=== PATIENT | female | born 1975 | race Caucasian/White ===

== ENCOUNTER 2024-04-26 09:02 | Emergency (ER) | payer OTHER ==
[2024-04-26] MEDS ORDERED: Acetaminophen 500 MG TAB ONE (09:43)
[2024-04-26 10:20] LABS: #Basophils Less than 0.03 10x3/uL (0.0-0.2); %Basophils 0.3 % (0.0-1.0); %Eosinophils 0.8 % (0.0-10.0); %Lymphocytes 4.6 % (21.0-51.0); %Monocytes 9.3 % (0.0-10.0); %Neutrophils 84.4 % (42.0-75.0); Hematocrit 26.4 % (36.0-47.0); Hemoglobin 8.1 g/dL (12.0-16.0); Mean Corpuscular HGB CONC 30.7 g/dL (32.0-36.0); Mean Corpuscular Hemoglobin 23.3 pg (27.0-31.0); Mean Corpuscular Volume 75.9 fL (78.0-98.0); Mean Platelet Volume 9.2 fL (7.4-10.4); Platelet Count 416 10x3/uL (130-400); RBC Distribution Width 16.4 % (11.5-14.5); Red Blood Cell (RBC) Count 3.48 mill/uL (4.20-5.40)
[2024-04-26 10:37] LABS: ALT (SGPT) 8 U/L (8-55); AST (SGOT) 14 U/L (5-34); Albumin 2.9 g/dL (3.5-5.0); Alkaline Phosphatase 86 U/L (40-110); Anion Gap 12 mmol/L (10-20); BUN (Urea Nitrogen) 11 mg/dL (7.0-18.7); Bilirubin, Total 0.3 mg/dL (0.2-1.2); Calc. Creatinine Clearance 0 mL/min (70-130); Calcium 9.9 mg/dL (7.8-10.44); Carbon Dioxide 24 mmol/L (22-29); Chloride 99 mmol/L (98-107); Estimated GFR 47; Globulin 3.6 g/dL (2.4-3.5); Glucose 98 mg/dL (70-105); Lipase 10 U/L (8-78); Potassium 4.1 mmol/L (3.5-5.1); Protein, Total 6.5 g/dL (6.0-8.3); Sodium 131 mmol/L (136-145)
[2024-04-26 10:41] LABS: Influenza A by NAA Not Detected (NotDetected); Influenza B by NAA Not Detected (NotDetected); SARS-CoV-2 NAA Rapid Test DETECTED (NotDetected)
[2024-04-26 10:43] LABS: Troponin I Less than 0.010 ng/mL (< 0.028)
== END 2024-04-26 11:03 ==
LOC: ERS 09:02 → EEVIPCON 09:02 → ERS 11:03
DX: U07.1 COVID-19 (principal)
CPT/HCPCS: 71045; 80053; 83690; 84484; 85025; 93005; 96360

== ENCOUNTER 2024-06-20 11:41 | Inpatient (IN) | payer OTHER ==
[2024-06-20 12:37] LABS: #Basophils 0.07 10x3/uL (0.0-0.2); %Basophils 0.6 % (0.0-1.0); %Eosinophils 2.3 % (0.0-10.0); %Lymphocytes 15.8 % (21.0-51.0); %Monocytes 8.9 % (0.0-10.0); %Neutrophils 72.2 % (42.0-75.0); Hematocrit 26.5 % (36.0-47.0); Hemoglobin 8.1 g/dL (12.0-16.0); Mean Corpuscular HGB CONC 30.6 g/dL (32.0-36.0); Mean Corpuscular Volume 85.2 fL (78.0-98.0); Mean Platelet Volume 9.6 fL (7.4-10.4); Platelet Count 429 10x3/uL (130-400); RBC Distribution Width 17.7 % (11.5-14.5); Red Blood Cell (RBC) Count 3.11 mill/uL (4.20-5.40)
[2024-06-20 12:51] LABS: INR-International Normal Ratio 1.1; Prothrombin Time 13.9 sec (12.0-14.7)
[2024-06-20 13:03] LABS: ALT (SGPT) 9 U/L (8-55); AST (SGOT) 13 U/L (5-34); Albumin 2.4 g/dL (3.5-5.0); Alkaline Phosphatase 91 U/L (40-110); Anion Gap 11 mmol/L (10-20); BUN (Urea Nitrogen) 8 mg/dL (7.0-18.7); Bilirubin, Total 0.2 mg/dL (0.2-1.2); Calc. Creatinine Clearance 0 mL/min (70-130); Calcium 9.5 mg/dL (7.8-10.44); Carbon Dioxide 24 mmol/L (22-29); Chloride 108 mmol/L (98-107); Estimated GFR 92; Globulin 3.5 g/dL (2.4-3.5); Glucose 89 mg/dL (70-105); Potassium 3.4 mmol/L (3.5-5.1); Protein, Total 5.9 g/dL (6.0-8.3); Sodium 140 mmol/L (136-145); Troponin I Less than 0.010 ng/mL (< 0.028)
[2024-06-20] MEDS ORDERED: Calcium Carbonate 500 MG ChewTAB PO PRN (14:51)
[2024-06-20 17:06] VITALS: BMI 35.7
[2024-06-20] MEDS: Pantoprazole 40 MG VIAL IVP SCH ×2 (17:43→20:40)
[2024-06-20] MEDS: Acetaminophen 325 MG TAB PO PRN (17:43)
[2024-06-20] MEDS: Ondansetron PF 4 MG/2 ML Vial IVP PRN (17:49)
[2024-06-20] MEDS: Morphine 2 MG/ML VIAL SLOW IVP PRN (18:35)
[2024-06-20 18:42] LABS: Hematocrit 26.7 % (36.0-47.0); Hemoglobin 8.2 g/dL (12.0-16.0)
[2024-06-20] MEDS: Potassium Chloride 20 MEQ in Premix 1 BAG IVPB SCH (20:41)
[2024-06-20] MEDS: Sodium Ferric Gluconate 250 MG in Sodium Chloride 0.9% 250 ML 250 ML IVPB SCH (22:32)
[2024-06-21 06:19] LABS: #Basophils 0.05 10x3/uL (0.0-0.2); %Basophils 0.7 % (0.0-1.0); %Eosinophils 2.6 % (0.0-10.0); %Monocytes 9.8 % (0.0-10.0); %Neutrophils 70.3 % (42.0-75.0); Hemoglobin 7.3 g/dL (12.0-16.0); Mean Corpuscular HGB CONC 30.4 g/dL (32.0-36.0); Mean Corpuscular Hemoglobin 26.2 pg (27.0-31.0); Mean Platelet Volume 9.6 fL (7.4-10.4); Platelet Count 379 10x3/uL (130-400); RBC Distribution Width 17.8 % (11.5-14.5); Red Blood Cell (RBC) Count 2.79 mill/uL (4.20-5.40)
[2024-06-21 06:38] LABS: ALT (SGPT) 8 U/L (8-55); AST (SGOT) 11 U/L (5-34); Albumin 2.1 g/dL (3.5-5.0); Alkaline Phosphatase 81 U/L (40-110); Anion Gap 11 mmol/L (10-20); BUN (Urea Nitrogen) 9 mg/dL (7.0-18.7); Bilirubin, Total 0.2 mg/dL (0.2-1.2); Calc. Creatinine Clearance 123 mL/min (70-130); Calcium 9.4 mg/dL (7.8-10.44); Carbon Dioxide 25 mmol/L (22-29); Chloride 111 mmol/L (98-107); Estimated GFR 84; Globulin 3.2 g/dL (2.4-3.5); Glucose 87 mg/dL (70-105); Potassium 3.8 mmol/L (3.5-5.1); Protein, Total 5.3 g/dL (6.0-8.3); Sodium 143 mmol/L (136-145)
[2024-06-21] MEDS: Lisinopril 20 MG TAB PO SCH (08:53)
[2024-06-21] MEDS: DULoxetine 60 MG CAP PO SCH (08:53)
[2024-06-21] MEDS ORDERED: PROPOFOL 20 ML ONE (13:14)
[2024-06-21] MEDS ORDERED: Lidocaine 1% PF 5 ML VIAL ONE (13:14)
[2024-06-21] MEDS ORDERED: fentaNYL PF 100 MCG/2 ML SYRINGE ONE (14:45)
[2024-06-21] MEDS ORDERED: EPINEPHrine 1 MG/10 ML Abboject SYRINGE ONE (14:54)
[2024-06-21] MEDS ORDERED: PROPOFOL 200 MG/20 ML VIAL ONE (15:02)
[2024-06-21 15:22] VITALS: BMI 35.7
[2024-06-21] MEDS ORDERED: fentaNYL 50 mcg/mL 1 mL Vial ONE ×2 (15:29→15:44)
[2024-06-21] MEDS ORDERED: Meperidine HCl/PF 25 MG (1 mL) VIAL ONE (15:30)
[2024-06-21] MEDS: Morphine 2 MG/ML VIAL SLOW IVP PRN (21:12)
[2024-06-22 07:20] LABS: #Basophils 0.06 10x3/uL (0.0-0.2); %Basophils 0.8 % (0.0-1.0); %Eosinophils 4.1 % (0.0-10.0); %Lymphocytes 14.1 % (21.0-51.0); %Monocytes 9.7 % (0.0-10.0); %Neutrophils 70.6 % (42.0-75.0); Hematocrit 24.5 % (36.0-47.0); Hemoglobin 7.4 g/dL (12.0-16.0); Mean Corpuscular HGB CONC 30.2 g/dL (32.0-36.0); Mean Corpuscular Hemoglobin 26.4 pg (27.0-31.0); Mean Corpuscular Volume 87.5 fL (78.0-98.0); Mean Platelet Volume 9.5 fL (7.4-10.4); Platelet Count 417 10x3/uL (130-400); RBC Distribution Width 17.9 % (11.5-14.5)
[2024-06-22 08:10] LABS: Anion Gap 11 mmol/L (10-20); BUN (Urea Nitrogen) 6 mg/dL (7.0-18.7); Calc. Creatinine Clearance 118 mL/min (70-130); Calcium 9.8 mg/dL (7.8-10.44); Carbon Dioxide 27 mmol/L (22-29); Chloride 106 mmol/L (98-107); Estimated GFR 79; Glucose 82 mg/dL (70-105); Magnesium 1.8 mg/dL (1.6-2.6); Sodium 140 mmol/L (136-145)
[2024-06-22] MEDS: Senokot S 8.6-50 MG TAB PO PRN (09:43)
[2024-06-22] MEDS: Acetaminophen 500 MG TAB PO SCH (15:06)
[2024-06-22] MEDS: Lidocaine 2% Viscous Solution 10 ML, Aluminum & Magnesium Hydroxide 30 ML SSW SCH ×2 (15:32→20:43)
[2024-06-22] MEDS: Lidocaine 4% Patch TD SCH ×2 (22:58→23:20)
[2024-06-22] MEDS: Sucralfate 1 GM TAB PO SCH (22:58)
[2024-06-22] MEDS: traMADol HCl 50 MG TAB PO SCH (22:58)
[2024-06-22] MEDS: HYDROcodone/Acetaminophen 5/325 mg Tablet PO SCH (23:33)
[2024-06-23 05:27] LABS: #Basophils 0.05 10x3/uL (0.0-0.2); %Basophils 0.7 % (0.0-1.0); %Eosinophils 3.4 % (0.0-10.0); %Lymphocytes 20.6 % (21.0-51.0); %Monocytes 13.4 % (0.0-10.0); %Neutrophils 61.2 % (42.0-75.0); Hematocrit 24.6 % (36.0-47.0); Hemoglobin 7.6 g/dL (12.0-16.0); Mean Corpuscular HGB CONC 30.9 g/dL (32.0-36.0); Mean Corpuscular Hemoglobin 26.2 pg (27.0-31.0); Mean Corpuscular Volume 84.8 fL (78.0-98.0); Mean Platelet Volume 9.9 fL (7.4-10.4); Platelet Count 414 10x3/uL (130-400)
[2024-06-23] MEDS: Sucralfate 1 GM TAB PO SCH (09:14)
[2024-06-23] MEDS ORDERED: traMADol HCl 50 MG TAB PO PRN (11:18)
[2024-06-23] MEDS ORDERED: traMADol HCl 50 MG TAB PO SCH (11:30)
[2024-06-23] MEDS: Transdermal Patch Removal TOP SCH (11:58)
[2024-06-23] MEDS: HYDROcodone/Acetaminophen 5/325 mg Tablet PO PRN (15:44)
[2024-06-23] MEDS: Temazepam 15 MG CAP PO PRN (22:56)
[2024-06-24 06:24] LABS: #Basophils 0.05 10x3/uL (0.0-0.2); %Basophils 0.7 % (0.0-1.0); %Eosinophils 4.1 % (0.0-10.0); %Neutrophils 59.3 % (42.0-75.0); Hematocrit 25.8 % (36.0-47.0); Mean Corpuscular Volume 87.2 fL (78.0-98.0); Mean Platelet Volume 9.3 fL (7.4-10.4); Platelet Count 450 10x3/uL (130-400); RBC Distribution Width 18.2 % (11.5-14.5); Red Blood Cell (RBC) Count 2.96 mill/uL (4.20-5.40)
[2024-06-24 07:36] VITALS: TEMP 98.6
[2024-06-24 11:17] VITALS: BP 154/64
== END 2024-06-24 15:18 | DRG 378 ==
LOC: SUATTDRO 11:41 → ERS 11:41 → T4-A 16:33 → EEVIPCON 16:33 → OBSVTOIN 06-21 20:10
PROVIDERS: ADMIT Internal Medicine; ATTEND Family Medicine
PROC: 0W3P8ZZ Control Bleeding in Gastrointestinal Tract, Via Natural or Artificial Opening Endoscopic (ICD-10-PCS; principal; 2024-06-21)
DX: K28.4 Chronic or unspecified gastrojejunal ulcer with hemorrhage (principal); D62 Acute posthemorrhagic anemia; E87.6 Hypokalemia; I10 Essential (primary) hypertension; G89.4 Chronic pain syndrome; F41.9 Anxiety disorder, unspecified; F32.A Depression, unspecified; Z88.0 Allergy status to penicillin; Z98.84 Bariatric surgery status; Z90.49 Acquired absence of other specified parts of digestive tract; Z87.891 Personal history of nicotine dependence; Z90.710 Acquired absence of both cervix and uterus
CPT/HCPCS: 36415; 36416; 71045; 74176; 80048; 80053; 83735; 84484; 85025; 85610; 85730; 86850; 86900; 86901; 93005; 93010; J0171; J2175; J2272; J2405; J2470; J2704; J2916; J3010; J3480; J7050

== ENCOUNTER 2024-07-16 08:58 | Inpatient (IN) | payer OTHER, SELFPAY ==
[2024-07-16] MEDS ORDERED: Pantoprazole 40 MG VIAL ONE (09:27)
[2024-07-16 09:51] LABS: #Basophils 0.05 10x3/uL (0.0-0.2); %Basophils 0.5 % (0.0-1.0); %Eosinophils 0.3 % (0.0-10.0); %Lymphocytes 11.8 % (21.0-51.0); %Monocytes 5.4 % (0.0-10.0); %Neutrophils 81.8 % (42.0-75.0); Hematocrit 30.8 % (36.0-47.0); Hemoglobin 9.7 g/dL (12.0-16.0); Mean Corpuscular HGB CONC 31.5 g/dL (32.0-36.0); Mean Corpuscular Hemoglobin 26.5 pg (27.0-31.0); Mean Corpuscular Volume 84.2 fL (78.0-98.0); Mean Platelet Volume 10.1 fL (7.4-10.4); Platelet Count 308 10x3/uL (130-400); RBC Distribution Width 16.3 % (11.5-14.5); Red Blood Cell (RBC) Count 3.66 mill/uL (4.20-5.40)
[2024-07-16 10:09] LABS: BHCG - Serum Negative (NEGATIVE); Pregs Control Background? CLEAR/WHITE (CLR/WHITE); Pregs Control Bar Appear? YES (CONTROL BAR)
[2024-07-16 10:18] LABS: ALT (SGPT) 12 U/L (8-55); AST (SGOT) 18 U/L (5-34); Albumin 2.9 g/dL (3.5-5.0); Alkaline Phosphatase 74 U/L (40-110); Anion Gap 13 mmol/L (10-20); BUN (Urea Nitrogen) 21 mg/dL (7.0-18.7); Bilirubin, Total 0.4 mg/dL (0.2-1.2); Calc. Creatinine Clearance 0 mL/min (70-130); Calcium 9.5 mg/dL (7.8-10.44); Carbon Dioxide 25 mmol/L (22-29); Chloride 107 mmol/L (98-107); Estimated GFR 73; Globulin 3.1 g/dL (2.4-3.5); Glucose 103 mg/dL (70-105); Magnesium 1.7 mg/dL (1.6-2.6); Potassium 3.4 mmol/L (3.5-5.1); Sodium 142 mmol/L (136-145)
[2024-07-16] MEDS ORDERED: Morphine 4 MG/ML VIAL ONE (10:34)
[2024-07-16] MEDS ORDERED: Ondansetron PF 4 MG/2 ML Vial ONE (10:34)
[2024-07-16] MEDS ORDERED: methylPREDNISolone Sod Succ 40 MG VIAL ONE (11:18)
[2024-07-16] MEDS ORDERED: Famotidine/PF 20 mg/2ml Vial ONE (11:18)
[2024-07-16] MEDS ORDERED: diphenhydrAMINE 50 MG/ML VIAL ONE (11:18)
[2024-07-16 12:11] LABS: Bacteria/HPF 1+ HPF (None Seen); Bilirubin Negative (Negative); Blood, Urine Negative (Negative); CAUTI Indications for Culture Dysuria,urgency,freq; Clarity Clear (Clear); Glucose, Urine (Dipstick) Normal (Negative); Ketone, Urine 20 mg/dL (Negative); Leukocyte 500 Leu/uL (Negative); Nitrite Negative (Negative); Protein, Urine (Dipstick) 20 mg/dL (Neg-Trace); RBC/HPF 0-3 HPF (0-3); Specific Gravity, Urine 1.023 (1.002-1.036); Squamous Epithelial 0-3 HPF (0-3); Urobilinogen Normal mg/dL (Less than 2); WBC/HPF 21-50 HPF (0-3)
[2024-07-16 12:13] LABS: INR-International Normal Ratio 1.1; Prothrombin Time 13.8 sec (12.0-14.7)
[2024-07-16 12:13] LABS: Urine Culture Reflex Yes Yes
[2024-07-16] MEDS ORDERED: Iopamidol-370 76% 500 ML MDV (1 ML CHARGE) ONE (12:43)
[2024-07-16] MEDS ORDERED: cefTRIAXone (ROCEPHIN) 2 GM VIAL ONE (13:52)
[2024-07-16] MEDS ORDERED: Sodium Chloride 0.9% 100 ML ONE (13:52)
[2024-07-16] MEDS ORDERED: Guaifenesin DM 100-10/5 ML UDCUP PO PRN (13:58)
[2024-07-16] MEDS ORDERED: Calcium Carbonate 500 MG ChewTAB PO PRN (13:58)
[2024-07-16 15:01] LABS: Hemoglobin 8.6 g/dL (12.0-16.0)
[2024-07-16] MEDS: Pantoprazole 80 MG, Admixture Fee 1 EACH in Sodium Chloride 0.9% 100 ML IVPB SCH ×2 (15:58→22:10)
[2024-07-16] MEDS: Sodium Chloride 0.9% 1,000 ML IV SCH (16:03)
[2024-07-16] MEDS: Ondansetron PF 4 MG/2 ML Vial IVP PRN (16:06)
[2024-07-16] MEDS: Acetaminophen/Codeine 30-300mg Tablet PO PRN (16:07)
[2024-07-16] MEDS ORDERED: Promethazine HCl 25 MG in Sodium Chloride 0.9% 50 ML IVPB PRN (16:43)
[2024-07-16] MEDS ORDERED: hydrALAZINE 20 MG/ML VIAL SLOW IVP PRN (17:57)
[2024-07-16] MEDS: Morphine 2 MG/ML VIAL SLOW IVP SCH (20:05)
[2024-07-16 21:31] LABS: Hemoglobin 7.5 g/dL (12.0-16.0)
[2024-07-16] MEDS: HYDROcodone/Acetaminophen 10/325 mg Tablet PO SCH (22:09)
[2024-07-16] MEDS ORDERED: Lidocaine 4% Patch TD SCH (22:15)
[2024-07-16] MEDS: Lidocaine 4% Patch TD SCH (23:23)
[2024-07-17 05:03] LABS: #Basophils 0.04 10x3/uL (0.0-0.2); #Eosinophils Less than 0.03 10x3/uL (0.0-0.7); %Basophils 0.7 % (0.0-1.0); %Eosinophils 0.3 % (0.0-10.0); %Lymphocytes 34.7 % (21.0-51.0); %Monocytes 9.4 % (0.0-10.0); %Neutrophils 54.7 % (42.0-75.0); Hematocrit 23.5 % (36.0-47.0); Hemoglobin 6.9 g/dL (12.0-16.0); Mean Corpuscular HGB CONC 29.4 g/dL (32.0-36.0); Mean Corpuscular Hemoglobin 26.1 pg (27.0-31.0); Mean Platelet Volume 10.2 fL (7.4-10.4); Platelet Count 207 10x3/uL (130-400); RBC Distribution Width 16.4 % (11.5-14.5); Red Blood Cell (RBC) Count 2.64 mill/uL (4.20-5.40)
[2024-07-17 05:21] LABS: ALT (SGPT) 8 U/L (8-55); AST (SGOT) 11 U/L (5-34); Albumin 2.2 g/dL (3.5-5.0); Alkaline Phosphatase 52 U/L (40-110); Anion Gap 10 mmol/L (10-20); BUN (Urea Nitrogen) 16 mg/dL (7.0-18.7); Bilirubin, Total 0.2 mg/dL (0.2-1.2); Calc. Creatinine Clearance 107 mL/min (70-130); Calcium 8.8 mg/dL (7.8-10.44); Carbon Dioxide 21 mmol/L (22-29); Chloride 113 mmol/L (98-107); Estimated GFR 88; Globulin 2.2 g/dL (2.4-3.5); Glucose 82 mg/dL (70-105); Potassium 3.1 mmol/L (3.5-5.1); Protein, Total 4.4 g/dL (6.0-8.3); Sodium 141 mmol/L (136-145)
[2024-07-17] MEDS: Morphine 2 MG/ML VIAL SLOW IVP PRN ×2 (10:21→20:39)
[2024-07-17] MEDS: Lisinopril 20 MG TAB PO SCH (11:44)
[2024-07-17] MEDS: Transdermal Patch Removal TOP SCH (11:45)
[2024-07-17] MEDS: DULoxetine 60 MG CAP PO SCH (11:45)
[2024-07-17 14:46] LABS: Hemoglobin 8.8 g/dL (12.0-16.0)
[2024-07-17] MEDS: cefTRIAXone\\ROCEPHIN 1 GM in Sodium Chloride 0.9% 100 ML IVPB SCH (16:12)
[2024-07-17 18:29] LABS: Hematocrit 27.8 % (36.0-47.0); Hemoglobin 8.2 g/dL (12.0-16.0)
[2024-07-17 21:12] LABS: Hematocrit 24.9 % (36.0-47.0); Hemoglobin 7.6 g/dL (12.0-16.0)
[2024-07-17] MEDS: Cyclobenzaprine 10 MG TAB PO SCH (23:31)
[2024-07-18 04:54] LABS: #Basophils 0.04 10x3/uL (0.0-0.2); %Basophils 0.8 % (0.0-1.0); %Eosinophils 2.1 % (0.0-10.0); %Lymphocytes 41.3 % (21.0-51.0); %Monocytes 10.4 % (0.0-10.0); %Neutrophils 45.4 % (42.0-75.0); Hematocrit 24.3 % (36.0-47.0); Hemoglobin 7.5 g/dL (12.0-16.0); Mean Corpuscular HGB CONC 30.9 g/dL (32.0-36.0); Mean Corpuscular Hemoglobin 27.2 pg (27.0-31.0); Mean Platelet Volume 10.2 fL (7.4-10.4); Platelet Count 176 10x3/uL (130-400); RBC Distribution Width 16.4 % (11.5-14.5); Red Blood Cell (RBC) Count 2.76 mill/uL (4.20-5.40)
[2024-07-18 05:05] LABS: Anion Gap 9 mmol/L (10-20); BUN (Urea Nitrogen) 8 mg/dL (7.0-18.7); Calc. Creatinine Clearance 99 mL/min (70-130); Calcium 8.9 mg/dL (7.8-10.44); Carbon Dioxide 24 mmol/L (22-29); Chloride 109 mmol/L (98-107); Estimated GFR 79; Glucose 84 mg/dL (70-105); Potassium 3.5 mmol/L (3.5-5.1); Sodium 138 mmol/L (136-145)
[2024-07-18] MEDS ORDERED: PROPOFOL 0 ML ONE (10:45)
[2024-07-18] MEDS ORDERED: Midazolam HCl 2 mg/2 ml Vial ONE (10:45)
[2024-07-18] MEDS ORDERED: PROPOFOL 20 ML ONE (10:52)
[2024-07-18] MEDS ORDERED: Ketamine In 0.9 % NaCl 50 MG/5 ML SYRINGE ONE (10:58)
[2024-07-18] MEDS ORDERED: EPINEPHrine 1 MG/10 ML Abboject SYRINGE ONE (11:11)
[2024-07-18] MEDS ORDERED: PROPOFOL 40 ML ONE (11:26)
[2024-07-18] MEDS ORDERED: Ondansetron PF 4 MG/2 ML Vial ONE (11:41)
[2024-07-18] MEDS ORDERED: fentaNYL 50 mcg/mL 1 mL Vial ONE ×2 (11:44→12:05)
[2024-07-18] MEDS ORDERED: Rocuronium Bromide 10 MG/ML (10ML VIAL) ONE (11:49)
[2024-07-18] MEDS ORDERED: HYDROmorphone 0.5 MG/0.5 ML SYRINGE ONE (11:54)
[2024-07-18] MEDS: Sucralfate 1 GM/10 ML UDCUP PO SCH (14:08)
[2024-07-18] MEDS: Pantoprazole 40 MG VIAL IVP SCH (15:22)
[2024-07-18] MEDS: Morphine 2 MG/ML VIAL SLOW IVP PRN (20:59)
[2024-07-18] MEDS: HYDROcodone/Acetaminophen 5/325 mg Tablet PO PRN (22:56)
[2024-07-19 09:42] LABS: #Basophils 0.04 10x3/uL (0.0-0.2); %Eosinophils 3.1 % (0.0-10.0); %Lymphocytes 30.4 % (21.0-51.0); %Neutrophils 55.3 % (42.0-75.0); Hematocrit 26.4 % (36.0-47.0); Hemoglobin 7.8 g/dL (12.0-16.0); Mean Corpuscular HGB CONC 29.5 g/dL (32.0-36.0); Mean Corpuscular Hemoglobin 26.9 pg (27.0-31.0); Mean Platelet Volume 10.1 fL (7.4-10.4); Platelet Count 198 10x3/uL (130-400)
[2024-07-19 09:59] LABS: Anion Gap 9 mmol/L (10-20); BUN (Urea Nitrogen) 5 mg/dL (7.0-18.7); Calc. Creatinine Clearance 106 mL/min (70-130); Calcium 8.9 mg/dL (7.8-10.44); Carbon Dioxide 25 mmol/L (22-29); Chloride 110 mmol/L (98-107); Estimated GFR 86; Glucose 87 mg/dL (70-105); Sodium 140 mmol/L (136-145)
[2024-07-19] MEDS ORDERED: Morphine 2 MG/ML VIAL SLOW IVP PRN (12:57)
[2024-07-19 20:37] VITALS: BP 148/67; TEMP 98.7
== END 2024-07-19 21:07 | disposition home or self-care (01) | DRG 378 ==
LOC: EEVIPCON 08:58 → ERS 08:58 → 2NO 13:53
PROVIDERS: ADMIT Internal Medicine; ATTEND Internal Medicine
PROC: 30233N1 Transfusion of Nonautologous Red Blood Cells into Peripheral Vein, Percutaneous Approach (ICD-10-PCS; 2024-07-17)
PROC: 0W3P8ZZ Control Bleeding in Gastrointestinal Tract, Via Natural or Artificial Opening Endoscopic (ICD-10-PCS; principal; 2024-07-18)
DX: K28.4 Chronic or unspecified gastrojejunal ulcer with hemorrhage (principal); D62 Acute posthemorrhagic anemia; K76.0 Fatty (change of) liver, not elsewhere classified; F41.9 Anxiety disorder, unspecified; F32.A Depression, unspecified; Z90.49 Acquired absence of other specified parts of digestive tract; Z88.0 Allergy status to penicillin; Z90.710 Acquired absence of both cervix and uterus; Z98.890 Other specified postprocedural states; R00.0 Tachycardia, unspecified; Z91.041 Radiographic dye allergy status
CPT/HCPCS: 36415; 36430; 74177; 80048; 80053; 81001; 82607; 83735; 84425; 84703; 85025; 85610; 85730; 86850; 86900; 86901; 87077; 87086; 93005; 96374; 96375; 96376; J0171; J0696; J1170; J1200; J2250; J2272; J2405; J2470; J2704; J2919; J3010; J3490; J7030; P9016; Q9967

== ENCOUNTER 2024-08-01 16:00 | Inpatient (IN) | payer OTHER ==
[~2024-08-01 16:00] MED LIST: Iopamidol-370 76% 500 ML MDV (1 ML CHARGE) ONE
[2024-08-01 17:46] LABS: #Basophils 0.04 10x3/uL (0.0-0.2); %Basophils 0.4 % (0.0-1.0); %Eosinophils 0.5 % (0.0-10.0); %Lymphocytes 23.2 % (21.0-51.0); %Monocytes 7.8 % (0.0-10.0); %Neutrophils 67.9 % (42.0-75.0); Hematocrit 31.4 % (36.0-47.0); Hemoglobin 10.1 g/dL (12.0-16.0); Mean Corpuscular HGB CONC 32.2 g/dL (32.0-36.0); Mean Corpuscular Hemoglobin 26.8 pg (27.0-31.0); Mean Corpuscular Volume 83.3 fL (78.0-98.0); Mean Platelet Volume 9.3 fL (7.4-10.4); Platelet Count 392 10x3/uL (130-400); RBC Distribution Width 15.2 % (11.5-14.5); Red Blood Cell (RBC) Count 3.77 mill/uL (4.20-5.40)
[2024-08-01] MEDS ORDERED: Morphine 2 MG/ML VIAL ONE ×2 (17:56→19:55)
[2024-08-01] MEDS ORDERED: Pantoprazole 40 MG VIAL ONE (17:56)
[2024-08-01 18:01] LABS: INR-International Normal Ratio 1.1; Prothrombin Time 13.9 sec (12.0-14.7)
[2024-08-01 18:02] LABS: ALT (SGPT) 10 U/L (8-55); AST (SGOT) 16 U/L (5-34); Albumin 2.9 g/dL (3.5-5.0); Alkaline Phosphatase 68 U/L (40-110); Anion Gap 11 mmol/L (10-20); BUN (Urea Nitrogen) 17 mg/dL (7.0-18.7); Bilirubin, Total 0.4 mg/dL (0.2-1.2); Calc. Creatinine Clearance 0 mL/min (70-130); Calcium 9.9 mg/dL (7.8-10.44); Carbon Dioxide 27 mmol/L (22-29); Chloride 107 mmol/L (98-107); Estimated GFR 78; Globulin 3.3 g/dL (2.4-3.5); Glucose 91 mg/dL (70-105); Lipase 10 U/L (8-78); Potassium 2.9 mmol/L (3.5-5.1); Protein, Total 6.2 g/dL (6.0-8.3); Sodium 142 mmol/L (136-145)
[2024-08-01 18:08] LABS: Troponin I Less than 0.010 ng/mL (< 0.028)
[2024-08-01] MEDS ORDERED: Ondansetron PF 4 MG/2 ML Vial ONE (18:14)
[2024-08-01] MEDS ORDERED: Pantoprazole 80 MG, Admixture Fee 1 EACH in Sodium Chloride 0.9% 100 ML IVPB SCH (18:30)
[2024-08-01 18:51] LABS: Bilirubin Negative (Negative); Blood, Urine Negative (Negative); CAUTI Indications for Culture Pelvic or flank pain; Clarity Clear (Clear); Glucose, Urine (Dipstick) Normal (Negative); Ketone, Urine 10 mg/dL (Negative); Leukocyte 250 Leu/uL (Negative); Nitrite Negative (Negative); Protein, Urine (Dipstick) 10 mg/dL (Neg-Trace); RBC/HPF 0-3 HPF (0-3); Specific Gravity, Urine 1.019 (1.002-1.036); Urobilinogen Normal mg/dL (Less than 2)
[2024-08-01 18:55] LABS: Bacteria/HPF 1+ HPF (None Seen); Urine Culture Reflex No No
[2024-08-01] MEDS ORDERED: diphenhydrAMINE 50 MG/ML VIAL ONE (19:35)
[2024-08-01] MEDS ORDERED: methylPREDNISolone Sod Succ 40 MG VIAL ONE (19:35)
[2024-08-01] MEDS ORDERED: Famotidine/PF 20 mg/2ml Vial ONE ×2 (19:37→19:38)
[2024-08-01] MEDS ORDERED: Potassium Chloride 20 MEQ (100 mL) BAG ONE (21:51)
[2024-08-01 22:40] LABS: #Basophils 0.03 10x3/uL (0.0-0.2); #Eosinophils Less than 0.03 10x3/uL (0.0-0.7); %Basophils 0.4 % (0.0-1.0); %Eosinophils 0.3 % (0.0-10.0); %Lymphocytes 8.1 % (21.0-51.0); %Monocytes 2.2 % (0.0-10.0); %Neutrophils 88.7 % (42.0-75.0); Hematocrit 28.4 % (36.0-47.0); Mean Corpuscular HGB CONC 31.7 g/dL (32.0-36.0); Mean Corpuscular Volume 85.3 fL (78.0-98.0); Mean Platelet Volume 9.3 fL (7.4-10.4); Platelet Count 311 10x3/uL (130-400); RBC Distribution Width 15.2 % (11.5-14.5); Red Blood Cell (RBC) Count 3.33 mill/uL (4.20-5.40)
[2024-08-01 22:57] LABS: Magnesium 1.7 mg/dL (1.6-2.6)
[2024-08-01 23:40] VITALS: BMI 30.6
[2024-08-02] MEDS: Morphine 4 MG/ML VIAL SLOW IVP PRN ×2 (00:11→22:30)
[2024-08-02] MEDS: Ondansetron PF 4 MG/2 ML Vial IVP PRN (00:11)
[2024-08-02] MEDS: Potassium Chloride 20 MEQ in Premix 1 BAG IVPB SCH (00:46)
[2024-08-02] MEDS: Magnesium 2 GM/50 ML(in water) 2 GM in Premix 1 BAG IVPB SCH ×2 (04:19→08:36)
[2024-08-02] MEDS: Magnesium Sulfate 2 GM in Sodium Chloride 0.9% 100 ML IVPB SCH (04:34)
[2024-08-02 04:38] LABS: Anion Gap 12 mmol/L (10-20); BUN (Urea Nitrogen) 13 mg/dL (7.0-18.7); Calc. Creatinine Clearance 107 mL/min (70-130); Calcium 8.9 mg/dL (7.8-10.44); Carbon Dioxide 20 mmol/L (22-29); Chloride 112 mmol/L (98-107); Estimated GFR 85; Glucose 119 mg/dL (70-105); Magnesium 1.7 mg/dL (1.6-2.6); Potassium 3.4 mmol/L (3.5-5.1); Sodium 141 mmol/L (136-145)
[2024-08-02] MEDS: Pantoprazole 80 MG, Admixture Fee 1 EACH in Sodium Chloride 0.9% 100 ML IVPB SCH (04:50)
[2024-08-02 05:05] LABS: #Basophils Less than 0.03 10x3/uL (0.0-0.2); #Eosinophils Less than 0.03 10x3/uL (0.0-0.7); %Basophils 0.4 % (0.0-1.0); %Lymphocytes 9.7 % (21.0-51.0); %Monocytes 1.5 % (0.0-10.0); %Neutrophils 88.2 % (42.0-75.0); Hematocrit 26.9 % (36.0-47.0); Hemoglobin 8.4 g/dL (12.0-16.0); Mean Corpuscular HGB CONC 31.2 g/dL (32.0-36.0); Mean Corpuscular Hemoglobin 26.9 pg (27.0-31.0); Mean Corpuscular Volume 86.2 fL (78.0-98.0); Mean Platelet Volume 9.7 fL (7.4-10.4); Platelet Count 306 10x3/uL (130-400); RBC Distribution Width 15.2 % (11.5-14.5); Red Blood Cell (RBC) Count 3.12 mill/uL (4.20-5.40)
[2024-08-02] MEDS: Multivitamin W/ Minerals 1 TAB PO SCH (07:53)
[2024-08-02] MEDS ORDERED: Electrolyte Replacement Protocol 1 EACH FS PRN (08:10)
[2024-08-02] MEDS ORDERED: Electrolyte Replacement Protocol FS PRN (08:30)
[2024-08-02] MEDS: DULoxetine 60 MG CAP PO SCH (08:43)
[2024-08-02] MEDS: Sucralfate 1 GM TAB PO SCH (08:43)
[2024-08-02] MEDS: Potassium Bicarbonate/Cit Ac 20 MEQ TAB PER TUBE SCH (08:43)
[2024-08-02 10:03] VITALS: BMI 30.6
[2024-08-02 11:00] LABS: Hematocrit 25.4 % (36.0-47.0)
[2024-08-02] MEDS: Lisinopril 20 MG TAB PO SCH (12:22)
[2024-08-02 14:20] LABS: Potassium 3.7 mmol/L (3.5-5.1)
[2024-08-02] MEDS: Nitroglycerin 0.4 MG TAB (25 Tab Bottle) SL PRN (14:52)
[2024-08-02] MEDS: Sodium Chloride 0.9% 1,000 ML IV SCH (14:53)
[2024-08-02] MEDS: Acetaminophen 325 MG TAB PO PRN (16:05)
[2024-08-02 19:09] LABS: Hematocrit 27.1 % (36.0-47.0); Hemoglobin 8.4 g/dL (12.0-16.0)
[2024-08-02] MEDS: Pantoprazole 40 MG VIAL IVP SCH (21:33)
[2024-08-03 04:36] LABS: #Basophils 0.05 10x3/uL (0.0-0.2); %Basophils 1.1 % (0.0-1.0); %Eosinophils 2.9 % (0.0-10.0); %Lymphocytes 41.9 % (21.0-51.0); %Monocytes 9.9 % (0.0-10.0); %Neutrophils 43.8 % (42.0-75.0); Hematocrit 25.5 % (36.0-47.0); Hemoglobin 7.7 g/dL (12.0-16.0); Mean Corpuscular HGB CONC 30.2 g/dL (32.0-36.0); Mean Corpuscular Volume 89.5 fL (78.0-98.0); Mean Platelet Volume 9.7 fL (7.4-10.4); Platelet Count 266 10x3/uL (130-400); RBC Distribution Width 15.5 % (11.5-14.5); Red Blood Cell (RBC) Count 2.85 mill/uL (4.20-5.40)
[2024-08-03 05:02] LABS: Anion Gap 10 mmol/L (10-20); BUN (Urea Nitrogen) 9 mg/dL (7.0-18.7); Calc. Creatinine Clearance 113 mL/min (70-130); Carbon Dioxide 24 mmol/L (22-29); Chloride 112 mmol/L (98-107); Estimated GFR 92; Glucose 82 mg/dL (70-105); Magnesium 1.8 mg/dL (1.6-2.6); Potassium 3.3 mmol/L (3.5-5.1); Sodium 143 mmol/L (136-145)
[2024-08-03] MEDS: Potassium Chloride 20 MEQ TAB PO SCH (10:10)
[2024-08-03] MEDS: Magnesium 2 GM/50 ML(in water) 2 GM in Premix 1 BAG IVPB SCH (10:11)
[2024-08-04 04:13] LABS: #Basophils 0.03 10x3/uL (0.0-0.2); %Basophils 0.6 % (0.0-1.0); %Lymphocytes 32.7 % (21.0-51.0); %Monocytes 10.6 % (0.0-10.0); %Neutrophils 51.9 % (42.0-75.0); Hematocrit 25.6 % (36.0-47.0); Hemoglobin 7.9 g/dL (12.0-16.0); Mean Corpuscular HGB CONC 30.9 g/dL (32.0-36.0); Mean Corpuscular Hemoglobin 27.1 pg (27.0-31.0); Mean Platelet Volume 10.2 fL (7.4-10.4); Platelet Count 281 10x3/uL (130-400); RBC Distribution Width 15.2 % (11.5-14.5); Red Blood Cell (RBC) Count 2.91 mill/uL (4.20-5.40)
[2024-08-04 05:00] LABS: Anion Gap 11 mmol/L (10-20); BUN (Urea Nitrogen) 6 mg/dL (7.0-18.7); Calc. Creatinine Clearance 104 mL/min (70-130); Calcium 8.9 mg/dL (7.8-10.44); Carbon Dioxide 25 mmol/L (22-29); Chloride 110 mmol/L (98-107); Estimated GFR 83; Glucose 100 mg/dL (70-105); Magnesium 1.7 mg/dL (1.6-2.6); Potassium 3.8 mmol/L (3.5-5.1); Sodium 142 mmol/L (136-145)
[2024-08-04] MEDS: Magnesium 2 GM/50 ML(in water) 2 GM in Premix 1 BAG IVPB SCH (08:09)
[2024-08-04] MEDS: Ondansetron PF 4 MG/2 ML Vial IVP PRN (15:51)
[2024-08-04] MEDS: HYDROcodone/Acetaminophen 7.5/325 mg Tablet PO PRN (23:04)
[2024-08-05] MEDS: Morphine 4 MG/ML VIAL SLOW IVP PRN ×2 (01:55→10:29)
[2024-08-05 05:29] LABS: Anion Gap 11 mmol/L (10-20); BUN (Urea Nitrogen) 7 mg/dL (7.0-18.7); Calc. Creatinine Clearance 107 mL/min (70-130); Calcium 9.2 mg/dL (7.8-10.44); Carbon Dioxide 27 mmol/L (22-29); Chloride 106 mmol/L (98-107); Estimated GFR 85; Glucose 87 mg/dL (70-105); Potassium 3.7 mmol/L (3.5-5.1); Sodium 140 mmol/L (136-145)
[2024-08-05 05:37] LABS: #Basophils 0.03 10x3/uL (0.0-0.2); %Basophils 0.7 % (0.0-1.0); %Eosinophils 4.6 % (0.0-10.0); %Lymphocytes 32.9 % (21.0-51.0); %Monocytes 12.4 % (0.0-10.0); %Neutrophils 49.2 % (42.0-75.0); Hematocrit 25.4 % (36.0-47.0); Hemoglobin 7.9 g/dL (12.0-16.0); Mean Corpuscular HGB CONC 31.1 g/dL (32.0-36.0); Mean Corpuscular Hemoglobin 27.2 pg (27.0-31.0); Mean Corpuscular Volume 87.6 fL (78.0-98.0); Mean Platelet Volume 9.9 fL (7.4-10.4); Platelet Count 272 10x3/uL (130-400); RBC Distribution Width 15.2 % (11.5-14.5)
[2024-08-05] MEDS: Sucralfate 1 GM TAB PO SCH ×2 (08:18→12:17)
[2024-08-06] MEDS ORDERED: Dextrose 5% in Water 1,000 ML IV PRN (00:27)
[2024-08-06] MEDS ORDERED: Dextrose 50% Abboject 50 ML SYRINGE SLOW IVP PRN (00:27)
[2024-08-06] MEDS ORDERED: Glucagon 1 MG/ML KIT IM PRN (00:27)
[2024-08-06 04:32] LABS: #Basophils 0.03 10x3/uL (0.0-0.2); %Basophils 0.7 % (0.0-1.0); %Eosinophils 3.7 % (0.0-10.0); %Lymphocytes 33.6 % (21.0-51.0); %Monocytes 11.9 % (0.0-10.0); %Neutrophils 49.9 % (42.0-75.0); Hematocrit 27.2 % (36.0-47.0); Hemoglobin 8.5 g/dL (12.0-16.0); Mean Corpuscular HGB CONC 31.3 g/dL (32.0-36.0); Mean Corpuscular Hemoglobin 27.6 pg (27.0-31.0); Mean Corpuscular Volume 88.3 fL (78.0-98.0); Platelet Count 277 10x3/uL (130-400); RBC Distribution Width 15.3 % (11.5-14.5); Red Blood Cell (RBC) Count 3.08 mill/uL (4.20-5.40)
[2024-08-06 04:47] LABS: Anion Gap 10 mmol/L (10-20); BUN (Urea Nitrogen) 7 mg/dL (7.0-18.7); Calc. Creatinine Clearance 112 mL/min (70-130); Calcium 9.6 mg/dL (7.8-10.44); Carbon Dioxide 30 mmol/L (22-29); Chloride 106 mmol/L (98-107); Estimated GFR 90; Glucose 98 mg/dL (70-105); Potassium 3.7 mmol/L (3.5-5.1); Sodium 142 mmol/L (136-145)
[2024-08-06] MEDS ORDERED: MAGIC MOUTHWASH 10 ML UDCUP SSW PRN (15:40)
[2024-08-06] MEDS ORDERED: MAGIC MOUTHWASH 10 ML, Compounding Fee 1 SSW PRN (15:47)
[2024-08-06] MEDS: Methocarbamol 500 MG TAB PO SCH ×2 (16:00→21:09)
[2024-08-06] MEDS: Senokot S 8.6-50 MG TAB PO SCH ×2 (16:00→21:09)
[2024-08-06] MEDS: Polyethylene Glycol 3350 17 GM Packet PO SCH (16:00)
[2024-08-07 04:40] LABS: #Basophils 0.03 10x3/uL (0.0-0.2); %Basophils 0.5 % (0.0-1.0); %Eosinophils 5.3 % (0.0-10.0); %Lymphocytes 29.2 % (21.0-51.0); %Monocytes 12.8 % (0.0-10.0); Hematocrit 25.1 % (36.0-47.0); Hemoglobin 7.8 g/dL (12.0-16.0); Mean Corpuscular HGB CONC 31.1 g/dL (32.0-36.0); Mean Corpuscular Hemoglobin 26.9 pg (27.0-31.0); Mean Corpuscular Volume 86.6 fL (78.0-98.0); Platelet Count 252 10x3/uL (130-400); RBC Distribution Width 15.4 % (11.5-14.5)
[2024-08-07 05:00] LABS: Anion Gap 11 mmol/L (10-20); BUN (Urea Nitrogen) 6 mg/dL (7.0-18.7); Calc. Creatinine Clearance 92 mL/min (70-130); Calcium 9.2 mg/dL (7.8-10.44); Carbon Dioxide 30 mmol/L (22-29); Chloride 105 mmol/L (98-107); Estimated GFR 72; Glucose 87 mg/dL (70-105); Potassium 3.9 mmol/L (3.5-5.1); Sodium 142 mmol/L (136-145)
[2024-08-07] MEDS: Polyethylene Glycol 3350 17 GM Packet PO SCH (08:53)
[2024-08-08 05:59] LABS: #Basophils 0.03 10x3/uL (0.0-0.2); %Basophils 0.5 % (0.0-1.0); %Eosinophils 5.4 % (0.0-10.0); %Lymphocytes 23.3 % (21.0-51.0); %Monocytes 10.5 % (0.0-10.0); %Neutrophils 60.1 % (42.0-75.0); Hematocrit 24.6 % (36.0-47.0); Hemoglobin 7.7 g/dL (12.0-16.0); Mean Corpuscular HGB CONC 31.3 g/dL (32.0-36.0); Mean Corpuscular Hemoglobin 27.3 pg (27.0-31.0); Mean Corpuscular Volume 87.2 fL (78.0-98.0); Platelet Count 261 10x3/uL (130-400); RBC Distribution Width 15.4 % (11.5-14.5); Red Blood Cell (RBC) Count 2.82 mill/uL (4.20-5.40)
[2024-08-08 06:16] LABS: Anion Gap 9 mmol/L (10-20); BUN (Urea Nitrogen) 6 mg/dL (7.0-18.7); Calc. Creatinine Clearance 87 mL/min (70-130); Carbon Dioxide 29 mmol/L (22-29); Chloride 106 mmol/L (98-107); Estimated GFR 67; Glucose 87 mg/dL (70-105); Potassium 3.9 mmol/L (3.5-5.1); Sodium 140 mmol/L (136-145)
[2024-08-08 06:44] LABS: Ferritin 66.51 ng/mL (10-291)
[2024-08-08 07:53] LABS: Vitamin D, 25 Hydroxy 47.3 ng/ml (> 30.0)
[2024-08-08] MEDS: D5 1/2 NS w/20 mEq KCL 1,000 ML IV SCH (22:06)
[2024-08-09] MEDS ORDERED: D5 1/2 NS w/20 mEq KCL 1,000 ML IV SCH
[2024-08-09 04:26] LABS: #Basophils 0.03 10x3/uL (0.0-0.2); %Basophils 0.5 % (0.0-1.0); %Eosinophils 6.2 % (0.0-10.0); %Lymphocytes 29.1 % (21.0-51.0); %Monocytes 12.6 % (0.0-10.0); %Neutrophils 51.2 % (42.0-75.0); Hemoglobin 7.9 g/dL (12.0-16.0); Mean Corpuscular HGB CONC 30.4 g/dL (32.0-36.0); Mean Corpuscular Hemoglobin 26.9 pg (27.0-31.0); Mean Corpuscular Volume 88.4 fL (78.0-98.0); Platelet Count 276 10x3/uL (130-400); RBC Distribution Width 15.4 % (11.5-14.5); Red Blood Cell (RBC) Count 2.94 mill/uL (4.20-5.40)
[2024-08-09 04:47] LABS: Anion Gap 9 mmol/L (10-20); BUN (Urea Nitrogen) 6 mg/dL (7.0-18.7); Calc. Creatinine Clearance 88 mL/min (70-130); Carbon Dioxide 28 mmol/L (22-29); Chloride 108 mmol/L (98-107); Potassium 3.9 mmol/L (3.5-5.1); Sodium 141 mmol/L (136-145)
[2024-08-09 04:48] LABS: Calcium 9.3 mg/dL (7.8-10.44); Estimated GFR 67; Glucose 88 mg/dL (70-105)
[2024-08-09] MEDS ORDERED: Propofol 500 MG/50 ML VIAL ONE (06:58)
[2024-08-09] MEDS ORDERED: EPINEPHrine 1 MG/ML VIAL ONE (07:05)
[2024-08-09] MEDS ORDERED: Bupivacaine 0.25% HCL 30 ML VIAL ONE (07:05)
[2024-08-09] MEDS ORDERED: Scopolamine 1 mg/72 hour Patch ONE (07:16)
[2024-08-09] MEDS ORDERED: LevoFLOXacin D5W 500 mg (100 mL) BAG ONE (07:16)
[2024-08-09] MEDS ORDERED: Midazolam HCl 2 mg/2 ml Vial ONE (07:42)
[2024-08-09] MEDS ORDERED: Rocuronium Bromide 10 MG/ML (10ML VIAL) ONE (07:47)
[2024-08-09] MEDS ORDERED: Vecuronium 10 MG VIAL ONE (07:47)
[2024-08-09] MEDS ORDERED: Lidocaine 1% PF 5 ML VIAL ONE (07:47)
[2024-08-09] MEDS ORDERED: SUGAMMADEX SODIUM 200 MG/2 ML VIAL ONE (07:48)
[2024-08-09] MEDS ORDERED: Dexamethasone 20 MG/5 ML VIAL ONE (07:57)
[2024-08-09] MEDS ORDERED: ePHEDrine Sulfate 50 MG/10 ML VIAL ONE (08:03)
[2024-08-09] MEDS ORDERED: PHENYLEPHRINE-NS 100 MCG/ML 10 ML SYRINGE ONE (08:27)
[2024-08-09] MEDS ORDERED: Dexmedetomidine 200 MCG/2 ML VIAL ONE (08:56)
[2024-08-09] MEDS ORDERED: Morphine 4 MG/ML VIAL SLOW IVP PRN (09:13)
[2024-08-09] MEDS ORDERED: PROPOFOL 40 ML ONE (09:43)
[2024-08-09] MEDS ORDERED: Ondansetron PF 4 MG/2 ML Vial ONE (10:02)
[2024-08-09] MEDS ORDERED: fentaNYL 50 mcg/mL 1 mL Vial ONE ×5 (10:17→11:47)
[2024-08-09] MEDS ORDERED: Ondansetron PF 4 MG/2 ML Vial IVP PRN (10:43)
[2024-08-09] MEDS ORDERED: oxyCODONE 5 MG TAB PO PRN (10:43)
[2024-08-09] MEDS ORDERED: Dextrose 50% Abboject 50 ML SYRINGE SLOW IVP PRN (10:43)
[2024-08-09] MEDS ORDERED: hydrALAZINE 20 MG/ML VIAL SLOW IVP PRN (10:43)
[2024-08-09] MEDS ORDERED: Glucagon 1 MG/ML KIT IM PRN (10:43)
[2024-08-09] MEDS ORDERED: Ipratropium/Albuterol 3 ML NEB NEB PRN (10:43)
[2024-08-09] MEDS ORDERED: diphenhydrAMINE 50 MG/ML VIAL IVP PRN (10:43)
[2024-08-09] MEDS ORDERED: Dextrose 5% in Water 1,000 ML IV PRN (10:43)
[2024-08-09] MEDS ORDERED: HYDROmorphone 0.5 MG/0.5 ML SYRINGE ONE (11:06)
[2024-08-09] MEDS: D5 1/2 NS w/20 mEq KCL 1,000 ML IV SCH (12:15)
[2024-08-09] MEDS: Acetaminophen 650 MG/20.3 ML UDCUP PO SCH (14:49)
[2024-08-09] MEDS: fentaNYL 50 mcg/mL 1 mL Vial SLOW IVP PRN (14:50)
[2024-08-09] MEDS: Promethazine HCl 25 MG/ML VIAL IM PRN (15:04)
[2024-08-09] MEDS ORDERED: diphenhydrAMINE 50 MG/ML VIAL IM PRN (19:46)
[2024-08-09] MEDS ORDERED: HYDROmorphone/PF 10 MG in Sodium Chloride 0.9% 99 ML IV PRN (19:46)
[2024-08-09] MEDS ORDERED: Naloxone HCl 0.4 mg/ml Vial IV PRN (19:46)
[2024-08-09] MEDS ORDERED: Communication Order-Pharmacy FS SCH (20:00)
[2024-08-09] MEDS: Ondansetron PF 4 MG/2 ML Vial IVP PRN (21:21)
[2024-08-09] MEDS: HYDROmorphone/PF 10 MG in Sodium Chloride 0.9% 99 ML IVPB PRN (22:00)
[2024-08-10 05:16] LABS: #Basophils 0.03 10x3/uL (0.0-0.2); #Eosinophils Less than 0.03 10x3/uL (0.0-0.7); %Basophils 0.2 % (0.0-1.0); %Lymphocytes 7.6 % (21.0-51.0); %Monocytes 7.7 % (0.0-10.0); Hematocrit 29.2 % (36.0-47.0); Hemoglobin 9.1 g/dL (12.0-16.0); Mean Corpuscular HGB CONC 31.2 g/dL (32.0-36.0); Mean Corpuscular Hemoglobin 27.3 pg (27.0-31.0); Mean Corpuscular Volume 87.7 fL (78.0-98.0); Mean Platelet Volume 10.6 fL (7.4-10.4); Platelet Count 318 10x3/uL (130-400); RBC Distribution Width 15.8 % (11.5-14.5); Red Blood Cell (RBC) Count 3.33 mill/uL (4.20-5.40)
[2024-08-10 05:25] LABS: Anion Gap 11 mmol/L (10-20); BUN (Urea Nitrogen) 8 mg/dL (7.0-18.7); Calc. Creatinine Clearance 93 mL/min (70-130); Calcium 9.2 mg/dL (7.8-10.44); Carbon Dioxide 24 mmol/L (22-29); Chloride 105 mmol/L (98-107); Estimated GFR 73; Glucose 123 mg/dL (70-105); Potassium 3.8 mmol/L (3.5-5.1); Sodium 136 mmol/L (136-145)
[2024-08-10] MEDS: Pantoprazole 40 MG VIAL IVP SCH (09:47)
[2024-08-10] MEDS: Thiamine 100 MG TAB PO SCH (09:47)
[2024-08-10] MEDS: Cyanocobalamin (Vitamin B-12) 1,000 MCG TAB PO SCH (09:47)
[2024-08-10] MEDS: Folic Acid 1 MG TAB PO SCH (09:47)
[2024-08-10] MEDS: Multivit, Therapeutic 1 TAB PO SCH (09:47)
[2024-08-10] MEDS: Enoxaparin 40 MG (0.4 mL) SYRINGE SC SCH (09:48)
[2024-08-10] MEDS: Cholecalciferol 1,000 UNITS (25 MCG) TAB PO SCH (21:29)
[2024-08-11 06:02] LABS: #Basophils 0.03 10x3/uL (0.0-0.2); %Basophils 0.2 % (0.0-1.0); %Eosinophils 0.4 % (0.0-10.0); %Lymphocytes 9.7 % (21.0-51.0); %Monocytes 10.1 % (0.0-10.0); Hematocrit 23.9 % (36.0-47.0); Hemoglobin 7.5 g/dL (12.0-16.0); Mean Corpuscular HGB CONC 31.4 g/dL (32.0-36.0); Mean Corpuscular Hemoglobin 27.3 pg (27.0-31.0); Mean Corpuscular Volume 86.9 fL (78.0-98.0); Mean Platelet Volume 10.5 fL (7.4-10.4); Platelet Count 232 10x3/uL (130-400); Red Blood Cell (RBC) Count 2.75 mill/uL (4.20-5.40)
[2024-08-11 06:17] LABS: Anion Gap 11 mmol/L (10-20); BUN (Urea Nitrogen) 12 mg/dL (7.0-18.7); Calc. Creatinine Clearance 102 mL/min (70-130); Calcium 9.2 mg/dL (7.8-10.44); Carbon Dioxide 22 mmol/L (22-29); Chloride 105 mmol/L (98-107); Estimated GFR 81; Glucose 93 mg/dL (70-105); Magnesium 1.6 mg/dL (1.6-2.6); Potassium 3.8 mmol/L (3.5-5.1); Sodium 134 mmol/L (136-145)
[2024-08-11] MEDS: Magnesium Sulfate In Water 4 GM in Premix 1 BAG IVPB SCH (08:41)
[2024-08-11] MEDS: Acetaminophen 650 MG/20.3 ML UDCUP PO SCH (13:10)
[2024-08-11] MEDS: Promethazine HCl 25 MG/ML VIAL IM PRN (13:10)
[2024-08-11] MEDS: D5 1/2 NS w/20 mEq KCL 1,000 ML IV SCH (16:44)
[2024-08-12 05:40] LABS: #Basophils 0.04 10x3/uL (0.0-0.2); %Basophils 0.4 % (0.0-1.0); %Eosinophils 2.2 % (0.0-10.0); %Lymphocytes 11.4 % (21.0-51.0); %Monocytes 9.9 % (0.0-10.0); %Neutrophils 75.7 % (42.0-75.0); Hematocrit 26.1 % (36.0-47.0); Mean Corpuscular HGB CONC 30.7 g/dL (32.0-36.0); Mean Corpuscular Volume 88.2 fL (78.0-98.0); Mean Platelet Volume 10.3 fL (7.4-10.4); Platelet Count 328 10x3/uL (130-400); RBC Distribution Width 15.6 % (11.5-14.5); Red Blood Cell (RBC) Count 2.96 mill/uL (4.20-5.40)
[2024-08-12 06:03] LABS: Anion Gap 11 mmol/L (10-20); BUN (Urea Nitrogen) 9 mg/dL (7.0-18.7); Calc. Creatinine Clearance 91 mL/min (70-130); Calcium 9.5 mg/dL (7.8-10.44); Carbon Dioxide 24 mmol/L (22-29); Chloride 101 mmol/L (98-107); Estimated GFR 71; Glucose 86 mg/dL (70-105); Potassium 4.1 mmol/L (3.5-5.1); Sodium 132 mmol/L (136-145)
[2024-08-12] MEDS: Hydrocodone-Acetamin 15 ML UDCUP PO PRN (08:36)
[2024-08-12] MEDS ORDERED: Lisinopril 10 MG TAB PO SCH (09:00)
[2024-08-12] MEDS: fentaNYL 50 mcg/mL 1 mL Vial SLOW IVP PRN (11:21)
[2024-08-12] MEDS: Ketorolac Tromethamine 30 MG (1 mL) VIAL IVP PRN (13:45)
[2024-08-13] MEDS: Polyethylene Glycol 3350 17 GM Packet PO SCH (09:05)
[2024-08-14 05:26] LABS: #Basophils 0.03 10x3/uL (0.0-0.2); %Basophils 0.4 % (0.0-1.0); %Eosinophils 2.4 % (0.0-10.0); %Lymphocytes 15.8 % (21.0-51.0); %Monocytes 10.8 % (0.0-10.0); %Neutrophils 70.2 % (42.0-75.0); Hematocrit 22.5 % (36.0-47.0); Mean Corpuscular HGB CONC 31.1 g/dL (32.0-36.0); Mean Corpuscular Hemoglobin 26.5 pg (27.0-31.0); Mean Corpuscular Volume 85.2 fL (78.0-98.0); Mean Platelet Volume 9.8 fL (7.4-10.4); Platelet Count 276 10x3/uL (130-400); RBC Distribution Width 15.5 % (11.5-14.5); Red Blood Cell (RBC) Count 2.64 mill/uL (4.20-5.40)
[2024-08-14 05:44] LABS: Anion Gap 11 mmol/L (10-20); BUN (Urea Nitrogen) 11 mg/dL (7.0-18.7); Calc. Creatinine Clearance 102 mL/min (70-130); Calcium 9.4 mg/dL (7.8-10.44); Carbon Dioxide 25 mmol/L (22-29); Chloride 107 mmol/L (98-107); Estimated GFR 81; Glucose 84 mg/dL (70-105); Potassium 4.1 mmol/L (3.5-5.1); Sodium 139 mmol/L (136-145)
[2024-08-15] MEDS: Promethazine HCl 25 MG in Sodium Chloride 0.9% 50 ML IVPB PRN (14:25)
[2024-08-15] MEDS: fentaNYL 50 mcg/mL 1 mL Vial SLOW IVP PRN (15:25)
[2024-08-15] MEDS: D5 1/2 NS w/20 mEq KCL 1,000 ML IV SCH (15:26)
[2024-08-16 12:15] LABS: #Basophils 0.03 10x3/uL (0.0-0.2); %Basophils 0.3 % (0.0-1.0); %Eosinophils 1.9 % (0.0-10.0); %Monocytes 9.3 % (0.0-10.0); %Neutrophils 71.9 % (42.0-75.0); Hematocrit 25.9 % (36.0-47.0); Hemoglobin 8.2 g/dL (12.0-16.0); Mean Corpuscular HGB CONC 31.7 g/dL (32.0-36.0); Mean Corpuscular Hemoglobin 26.5 pg (27.0-31.0); Mean Corpuscular Volume 83.8 fL (78.0-98.0); Mean Platelet Volume 9.5 fL (7.4-10.4); Platelet Count 457 10x3/uL (130-400); RBC Distribution Width 15.7 % (11.5-14.5); Red Blood Cell (RBC) Count 3.09 mill/uL (4.20-5.40)
[2024-08-16 12:58] LABS: Anion Gap 11 mmol/L (10-20); BUN (Urea Nitrogen) 11 mg/dL (7.0-18.7); Calc. Creatinine Clearance 100 mL/min (70-130); Calcium 9.4 mg/dL (7.8-10.44); Carbon Dioxide 23 mmol/L (22-29); Chloride 106 mmol/L (98-107); Estimated GFR 78; Glucose 90 mg/dL (70-105); Potassium 4.2 mmol/L (3.5-5.1); Sodium 136 mmol/L (136-145)
[2024-08-16] MEDS: Hydrocodone-Acetamin 15 ML UDCUP PO PRN (19:34)
[2024-08-16] MEDS: predniSONE 50 MG TAB PO SCH (19:35)
[2024-08-17] MEDS: diphenhydrAMINE 50 MG/ML VIAL IVP PRN (00:34)
[2024-08-17] MEDS: diphenhydrAMINE 25 MG CAP PO SCH (08:34)
[2024-08-17] MEDS ORDERED: Iopamidol 370 76% 100 ML VIAL ONE (12:00)
[2024-08-18] MEDS: Lidocaine 1% w/Epinephrine 1:100K 20 ML VIAL FS SCH (10:14)
[2024-08-21 17:52] LABS: #Basophils 0.05 10x3/uL (0.0-0.2); %Basophils 0.5 % (0.0-1.0); %Eosinophils 3.3 % (0.0-10.0); %Lymphocytes 19.3 % (21.0-51.0); %Monocytes 7.3 % (0.0-10.0); %Neutrophils 69.2 % (42.0-75.0); Hematocrit 26.9 % (36.0-47.0); Hemoglobin 8.3 g/dL (12.0-16.0); Mean Corpuscular HGB CONC 30.9 g/dL (32.0-36.0); Mean Corpuscular Hemoglobin 26.2 pg (27.0-31.0); Mean Corpuscular Volume 84.9 fL (78.0-98.0); Mean Platelet Volume 8.8 fL (7.4-10.4); Platelet Count 578 10x3/uL (130-400); Red Blood Cell (RBC) Count 3.17 mill/uL (4.20-5.40)
[2024-08-21 18:19] LABS: Anion Gap 11 mmol/L (10-20); BUN (Urea Nitrogen) 9 mg/dL (7.0-18.7); Calc. Creatinine Clearance 85 mL/min (70-130); Calcium 9.7 mg/dL (7.8-10.44); Carbon Dioxide 25 mmol/L (22-29); Chloride 103 mmol/L (98-107); Estimated GFR 64; Glucose 90 mg/dL (70-105); Potassium 4.2 mmol/L (3.5-5.1); Sodium 135 mmol/L (136-145)
[2024-08-21] MEDS: diphenhydrAMINE 25 MG CAP PO PRN (20:05)
[2024-08-22 05:41] LABS: #Basophils 0.03 10x3/uL (0.0-0.2); %Basophils 0.3 % (0.0-1.0); %Eosinophils 4.1 % (0.0-10.0); %Lymphocytes 16.7 % (21.0-51.0); %Monocytes 8.5 % (0.0-10.0); %Neutrophils 69.8 % (42.0-75.0); Mean Corpuscular HGB CONC 30.8 g/dL (32.0-36.0); Mean Corpuscular Hemoglobin 26.1 pg (27.0-31.0); Mean Corpuscular Volume 84.7 fL (78.0-98.0); Mean Platelet Volume 9.1 fL (7.4-10.4); Platelet Count 544 10x3/uL (130-400); RBC Distribution Width 15.9 % (11.5-14.5); Red Blood Cell (RBC) Count 3.07 mill/uL (4.20-5.40)
[2024-08-22 06:07] LABS: ALT (SGPT) 5 U/L (8-55); AST (SGOT) 11 U/L (5-34); Albumin 2.3 g/dL (3.5-5.0); Alkaline Phosphatase 80 U/L (40-110); Anion Gap 10 mmol/L (10-20); BUN (Urea Nitrogen) 8 mg/dL (7.0-18.7); Bilirubin, Total 0.2 mg/dL (0.2-1.2); Calc. Creatinine Clearance 89 mL/min (70-130); Calcium 9.7 mg/dL (7.8-10.44); Carbon Dioxide 28 mmol/L (22-29); Chloride 103 mmol/L (98-107); Estimated GFR 68; Globulin 3.1 g/dL (2.4-3.5); Glucose 90 mg/dL (70-105); Potassium 4.1 mmol/L (3.5-5.1); Protein, Total 5.4 g/dL (6.0-8.3); Sodium 137 mmol/L (136-145)
[2024-08-22] MEDS: LevoFLOXacin 500 mg/D5W 500 MG in Premix 1 BAG IVPB SCH (16:14)
[2024-08-22] MEDS: fentaNYL 50 mcg/mL 1 mL Vial SLOW IVP PRN (16:14)
[2024-08-22] MEDS: metroNIDAZOLE 500 MG in Premix 1 BAG IVPB SCH (21:43)
[2024-08-23 06:03] LABS: #Basophils 0.04 10x3/uL (0.0-0.2); %Basophils 0.4 % (0.0-1.0); %Lymphocytes 11.8 % (21.0-51.0); %Monocytes 9.6 % (0.0-10.0); %Neutrophils 73.8 % (42.0-75.0); Hematocrit 29.1 % (36.0-47.0); Hemoglobin 8.9 g/dL (12.0-16.0); Mean Corpuscular HGB CONC 30.6 g/dL (32.0-36.0); Mean Corpuscular Hemoglobin 25.9 pg (27.0-31.0); Mean Corpuscular Volume 84.6 fL (78.0-98.0); Mean Platelet Volume 9.4 fL (7.4-10.4); Platelet Count 615 10x3/uL (130-400); RBC Distribution Width 15.8 % (11.5-14.5); Red Blood Cell (RBC) Count 3.44 mill/uL (4.20-5.40)
[2024-08-23 06:36] LABS: ALT (SGPT) Less than 5 U/L (8-55); AST (SGOT) 11 U/L (5-34); Albumin 2.6 g/dL (3.5-5.0); Alkaline Phosphatase 92 U/L (40-110); Anion Gap 14 mmol/L (10-20); BUN (Urea Nitrogen) 8 mg/dL (7.0-18.7); Bilirubin, Total 0.2 mg/dL (0.2-1.2); Calc. Creatinine Clearance 81 mL/min (70-130); Calcium 10.4 mg/dL (7.8-10.44); Carbon Dioxide 26 mmol/L (22-29); Chloride 104 mmol/L (98-107); Estimated GFR 61; Globulin 3.5 g/dL (2.4-3.5); Glucose 83 mg/dL (70-105); Potassium 4.1 mmol/L (3.5-5.1); Protein, Total 6.1 g/dL (6.0-8.3); Sodium 140 mmol/L (136-145)
[2024-08-23] MEDS ORDERED: fentaNYL 50 mcg/mL 1 mL Vial ONE (13:57)
[2024-08-23] MEDS ORDERED: Sodium Bicarbonate 2.5 MEQ/5 ML SDV ONE (13:58)
[2024-08-23] MEDS ORDERED: Midazolam HCl 2 mg/2 ml Vial ONE (13:58)
[2024-08-23] MEDS ORDERED: Ondansetron PF 4 MG/2 ML Vial ONE (14:34)
[2024-08-23 16:55] LABS: Body Fluid Source Abscess Fluid; Clarity Cloudy/Turbid (Clear); Tube # EDTA
[2024-08-23 16:56] LABS: BF Color Yellow
[2024-08-24] MEDS ORDERED: fentaNYL 50 mcg/mL 1 mL Vial ONE (18:10)
[2024-08-25] MEDS ORDERED: fentaNYL 50 mcg/mL 1 mL Vial ONE ×5 (06:50→22:48)
[2024-08-25] MEDS ORDERED: Folic Acid 1 MG TAB ONE (09:27)
[2024-08-25] MEDS ORDERED: Multivit, Therapeutic 1 TAB ONE (09:27)
[2024-08-25] MEDS ORDERED: Thiamine 100 MG TAB ONE (09:27)
[2024-08-25] MEDS ORDERED: DULoxetine 60 MG CAP ONE (09:27)
[2024-08-25] MEDS ORDERED: Pantoprazole DR 40 MG TAB ONE (09:27)
[2024-08-25] MEDS ORDERED: Cyanocobalamin (Vitamin B-12) 1,000 MCG TAB ONE ×2 (09:27→20:38)
[2024-08-25] MEDS ORDERED: Ondansetron PF 4 MG/2 ML Vial ONE ×2 (11:20→22:48)
[2024-08-25] MEDS ORDERED: Hydrocodone-Acetamin 15 ML UDCUP ONE ×3 (11:20→20:38)
[2024-08-25] MEDS ORDERED: metroNIDAZOLE 500 MG (100 mL) BAG ONE ×2 (13:57→22:48)
[2024-08-25] MEDS ORDERED: LevoFLOXacin D5W 500 mg (100 mL) BAG ONE (15:18)
[2024-08-25] MEDS ORDERED: diphenhydrAMINE 50 MG/ML VIAL ONE ×2 (15:18→20:38)
[2024-08-25] MEDS: fentaNYL 50 mcg/mL 1 mL Vial ONE ×2 (19:02)
[2024-08-26] MEDS ORDERED: Hydrocodone-Acetamin 15 ML UDCUP ONE (03:06)
[2024-08-26] MEDS ORDERED: diphenhydrAMINE 50 MG/ML VIAL ONE (04:30)
[2024-08-26] MEDS ORDERED: fentaNYL 50 mcg/mL 1 mL Vial ONE ×4 (04:59→23:29)
[2024-08-26] MEDS ORDERED: metroNIDAZOLE 500 MG (100 mL) BAG ONE (06:05)
[2024-08-26] MEDS: fentaNYL 50 mcg/mL 1 mL Vial ONE ×3 (10:37→18:05)
[2024-08-26 12:28] LABS: #Basophils 0.05 10x3/uL (0.0-0.2); %Basophils 0.7 % (0.0-1.0); %Eosinophils 3.9 % (0.0-10.0); %Lymphocytes 21.9 % (21.0-51.0); %Monocytes 11.3 % (0.0-10.0); %Neutrophils 61.8 % (42.0-75.0); Hematocrit 29.5 % (36.0-47.0); Hemoglobin 8.8 g/dL (12.0-16.0); Mean Corpuscular HGB CONC 29.8 g/dL (32.0-36.0); Mean Corpuscular Hemoglobin 25.5 pg (27.0-31.0); Mean Corpuscular Volume 85.5 fL (78.0-98.0); Mean Platelet Volume 8.9 fL (7.4-10.4); Platelet Count 565 10x3/uL (130-400); RBC Distribution Width 15.6 % (11.5-14.5); Red Blood Cell (RBC) Count 3.45 mill/uL (4.20-5.40)
[2024-08-26 12:58] LABS: Anion Gap 12 mmol/L (10-20); BUN (Urea Nitrogen) 8 mg/dL (7.0-18.7); Calc. Creatinine Clearance 83 mL/min (70-130); Calcium 10.3 mg/dL (7.8-10.44); Carbon Dioxide 25 mmol/L (22-29); Chloride 102 mmol/L (98-107); Estimated GFR 63; Glucose 90 mg/dL (70-105); Potassium 4.4 mmol/L (3.5-5.1); Sodium 135 mmol/L (136-145)
[2024-08-26] MEDS: predniSONE 50 MG TAB PO SCH (21:48)
[2024-08-27] MEDS: fentaNYL 50 mcg/mL 1 mL Vial ONE ×5 (05:12→21:23)
[2024-08-27] MEDS: Hydrocodone-Acetamin 15 ML UDCUP PO PRN (10:57)
[2024-08-27] MEDS: Methocarbamol 500 MG TAB PO SCH ×2 (11:46→19:20)
[2024-08-28] MEDS: fentaNYL 50 mcg/mL 1 mL Vial ONE (05:25)
[2024-08-28] MEDS ORDERED: Lidocaine 4% Patch TD SCH (09:30)
[2024-08-28] MEDS: HYDROcodone/Acetaminophen 10/325 mg Tablet PO PRN (11:02)
[2024-08-28] MEDS: Lidocaine 4% Patch TD SCH (11:03)
[2024-08-28] MEDS: Morphine 4 MG/ML VIAL SLOW IVP PRN (13:03)
[2024-08-28] MEDS: diphenhydrAMINE 50 MG CAP PO PRN (13:03)
[2024-08-28] MEDS: Methocarbamol 500 MG TAB PO SCH (14:31)
[2024-08-28] MEDS: Gabapentin 300 MG CAP PO SCH (14:32)
[2024-08-28] MEDS: Acetaminophen 650 MG/20.3 ML UDCUP ONE (15:43)
[2024-08-28] MEDS: metroNIDAZOLE 500 MG TAB PO SCH ×2 (16:50→22:49)
[2024-08-28] MEDS: Transdermal Patch Removal TOP SCH (23:44)
[2024-08-29 06:12] LABS: Anion Gap 11 mmol/L (10-20); BUN (Urea Nitrogen) 11 mg/dL (7.0-18.7); Calc. Creatinine Clearance 90 mL/min (70-130); Calcium 9.8 mg/dL (7.8-10.44); Carbon Dioxide 23 mmol/L (22-29); Chloride 104 mmol/L (98-107); Estimated GFR 69; Glucose 97 mg/dL (70-105); Potassium 3.8 mmol/L (3.5-5.1); Sodium 134 mmol/L (136-145)
[2024-08-29 12:51] LABS: #Basophils 0.05 10x3/uL (0.0-0.2); %Basophils 0.6 % (0.0-1.0); %Eosinophils 1.4 % (0.0-10.0); %Lymphocytes 28.2 % (21.0-51.0); %Monocytes 9.7 % (0.0-10.0); %Neutrophils 59.7 % (42.0-75.0); Hematocrit 28.9 % (36.0-47.0); Hemoglobin 8.7 g/dL (12.0-16.0); Mean Corpuscular HGB CONC 30.1 g/dL (32.0-36.0); Mean Corpuscular Hemoglobin 25.6 pg (27.0-31.0); Mean Platelet Volume 9.1 fL (7.4-10.4); Platelet Count 512 10x3/uL (130-400); RBC Distribution Width 15.9 % (11.5-14.5)
[2024-08-29] MEDS ORDERED: cefTRIAXone Sodium 2,000 MG in Syringe 0 ML IVPB SCH (14:15)
[2024-08-29] MEDS: Clindamycin/D5W 900 MG in Premix 1 BAG IVPB SCH (14:54)
[2024-08-29] MEDS ORDERED: Clindamycin (PEDI) 900 MG in Syringe 0 ML IVPB SCH (18:00)
[2024-08-30] MEDS: Acetaminophen 650 MG/20.3 ML UDCUP ONE ×2 (01:12→19:39)
[2024-08-30] MEDS: Acetaminophen 650 MG/20.3 ML UDCUP PO SCH (06:13)
[2024-08-30] MEDS: fentaNYL 50 mcg/mL 1 mL Vial ONE (19:39)
[2024-08-30] MEDS ORDERED: Bisacodyl 10 MG SUPP PR PRN (23:25)
[2024-08-31] MEDS: Senokot 8.6 MG TAB PO SCH (08:35)
[2024-08-31] MEDS: Saccharomyces boulardii 250 MG CAP PO SCH (10:53)
[2024-09-01] MEDS: Saccharomyces boulardii 250 MG CAP PO SCH (08:46)
[2024-09-01] MEDS: Morphine 2 MG/ML VIAL SLOW IVP SCH (11:56)
[2024-09-02 05:13] LABS: #Basophils 0.04 10x3/uL (0.0-0.2); %Basophils 0.7 % (0.0-1.0); %Lymphocytes 25.8 % (21.0-51.0); %Neutrophils 51.9 % (42.0-75.0); Hematocrit 27.9 % (36.0-47.0); Hemoglobin 8.8 g/dL (12.0-16.0); Mean Corpuscular HGB CONC 31.5 g/dL (32.0-36.0); Mean Corpuscular Hemoglobin 25.8 pg (27.0-31.0); Mean Corpuscular Volume 81.8 fL (78.0-98.0); Platelet Count 399 10x3/uL (130-400); RBC Distribution Width 15.4 % (11.5-14.5); Red Blood Cell (RBC) Count 3.41 mill/uL (4.20-5.40)
[2024-09-02 05:25] LABS: Anion Gap 10 mmol/L (10-20); BUN (Urea Nitrogen) 9 mg/dL (7.0-18.7); CRP,High Sensitivity (Inhouse) 0.14 mg/dL (< or = 0.5); Calc. Creatinine Clearance 115 mL/min (70-130); Calcium 9.4 mg/dL (7.8-10.44); Carbon Dioxide 25 mmol/L (22-29); Chloride 101 mmol/L (98-107); Estimated GFR 93; Glucose 85 mg/dL (70-105); Potassium 4.2 mmol/L (3.5-5.1); Sodium 132 mmol/L (136-145)
[2024-09-02 07:33] LABS: Albumin 2.4 g/dL (3.5-5.0); Anion Gap 12 mmol/L (10-20); BUN (Urea Nitrogen) 8 mg/dL (7.0-18.7); Bilirubin, Total 0.3 mg/dL (0.2-1.2); Calc. Creatinine Clearance 87 mL/min (70-130); Calcium 9.9 mg/dL (7.6-10.4); Carbon Dioxide 25 mmol/L (22-29); Chloride 106 mmol/L (98-107); Estimated GFR 67; Globulin 3.4 g/dL (2.4-3.5); Glucose 92 mg/dL (70-105); Potassium 3.9 mmol/L (3.5-5.1); Protein, Total 5.8 g/dL (6.0-8.3); Sodium 139 mmol/L (136-145)
[2024-09-02 07:34] LABS: ALT (SGPT) 5 U/L (8-55); AST (SGOT) 11 U/L (5-34); Alkaline Phosphatase 84 U/L (40-110); Hematocrit 27.6 % (36.0-47.0); Hemoglobin 8.5 g/dL (12.0-16.0); Mean Corpuscular Hemoglobin 25.8 pg (27.0-31.0); Mean Corpuscular Volume 83.9 fL (78.0-98.0); Red Blood Cell (RBC) Count 3.29 mill/uL (4.20-5.40)
[2024-09-02 07:35] LABS: #Basophils 0.03 10x3/uL (0.0-0.2); %Basophils 0.3 % (0.0-1.0); %Eosinophils 2.3 % (0.0-10.0); %Lymphocytes 10.8 % (21.0-51.0); Mean Corpuscular HGB CONC 30.8 g/dL (32.0-36.0); Mean Platelet Volume 8.9 fL (7.4-10.4); Platelet Count 518 10x3/uL (130-400); RBC Distribution Width 15.8 % (11.5-14.5)
[2024-09-02 11:37] VITALS: BP 130/75; TEMP 98.3
== END 2024-09-02 12:39 | DRG 907 ==
LOC: EEVIPCON 16:00 → ERS 16:00 → 2SE 22:07 → OBSVTOIN 08-03 09:40 → MSONC 08-04 17:30 → SURG A 08-09 07:00
PROVIDERS: ADMIT Internal Medicine; ATTEND Family Medicine
PROC: 0DB64ZZ Excision of Stomach, Percutaneous Endoscopic Approach (ICD-10-PCS; principal; 2024-08-09)
PROC: 0DQ64ZZ Repair Stomach, Percutaneous Endoscopic Approach (ICD-10-PCS; 2024-08-09)
PROC: 8E0W4CZ Robotic Assisted Procedure of Trunk Region, Percutaneous Endoscopic Approach (ICD-10-PCS; 2024-08-09)
DX: K91.840 Postprocedural hemorrhage of a digestive system organ or structure following a digestive system procedure (principal); K28.4 Chronic or unspecified gastrojejunal ulcer with hemorrhage; K75.0 Abscess of liver; D62 Acute posthemorrhagic anemia; E87.1 Hypo-osmolality and hyponatremia; E87.6 Hypokalemia; I10 Essential (primary) hypertension; Z91.041 Radiographic dye allergy status; Z88.0 Allergy status to penicillin; F32.A Depression, unspecified; Z90.49 Acquired absence of other specified parts of digestive tract; Z90.710 Acquired absence of both cervix and uterus; Z87.891 Personal history of nicotine dependence; F41.9 Anxiety disorder, unspecified; K59.00 Constipation, unspecified; Z79.899 Other long term (current) drug therapy; D50.9 Iron deficiency anemia, unspecified; M94.0 Chondrocostal junction syndrome [Tietze]; E83.42 Hypomagnesemia; K76.89 Other specified diseases of liver
CPT/HCPCS: 36415; 71045; 74022; 74177; 74178; 74183; 76705; 77012; 80048; 80053; 81001; 82306; 82607; 82728; 83605; 83690; 83735; 84425; 84484; 85025; 85060; 85610; 85730; 86141; 86850; 86900; 86901; 87070; 87086; 87205; 88307; 88342; 89051; 93005; 93010; 96361; 96374; 96375; 96376; 97139; G0378; J0171; J0665; J1100; J1200; J1650; J1885; J1956; J2250; J2272; J2405; J2470; J2550; J2704; J2919; J3010; J3475; J3480; J3490; J7030; J7512; Q9967; S2900